=== PATIENT | female | born 1955 ===

== ENCOUNTER 2020-03-06 05:50 | Day surgery (SDC) | payer OTHER ==
[~2020-03-06 05:50] MED LIST: AVENTYL HCL25 MG PO; GABAPENTIN400 MG PO; INDAPAMIDE1.25 MG PO; LIPITOR40 M1 PO; NAPROXEN500 MG PO; PEPCID AC20 MG PO; ZESTRIL10 M1 PO
[2020-03-06] MEDS ORDERED: PERCOCET 5-3251 EACH PO (09:18)
== END 2020-03-06 11:25 | disposition home or self-care (01) ==
LOC: CIR.AMB 05:50
PROVIDERS: ATTEND Surgery
DX: D35.1 Benign neoplasm of parathyroid gland (principal); Z20.828 Contact with and (suspected) exposure to other viral communicable diseases